=== PATIENT | male | born 1995 | race Caucasian/White ===

== ENCOUNTER → 2022-11-07 | Outpatient (CLI) | payer OTHER | END | disposition home or self-care (01) | LOC: RAD 14:26 | DX: M25.542 Pain in joints of left hand (principal) ==

== ENCOUNTER 2022-11-22 12:11 | Outpatient (CLI) | payer OTHER | END 2022-11-22 12:19 | disposition home or self-care (01) | LOC: RAD 12:11 | DX: S62.002A Unspecified fracture of navicular [scaphoid] bone of left wrist, initial encounter for closed fracture (principal) ==

== ENCOUNTER 2022-12-12 14:40 | Outpatient (CLI) | payer OTHER | END 2022-12-12 14:48 | disposition home or self-care (01) | LOC: RAD 14:40 | DX: S62.002A Unspecified fracture of navicular [scaphoid] bone of left wrist, initial encounter for closed fracture (principal) ==